=== PATIENT | male | born 1945 | race Caucasian/White ===

== ENCOUNTER 2017-07-08 17:05 | Emergency (ER) | payer MEDICARE ==
[~2017-07-08] VITALS: Ht 160 cm; Wt 85.5 kg
[2017-07-08] MEDS ORDERED: ATOR10TA84 PO (17:27)
[2017-07-08] MEDS ORDERED: LISI-661 PO (17:27)
[2017-07-08] MEDS ORDERED: METF500T4 PO (17:27)
[2017-07-08 17:30] VITALS: BP 147/88
[2017-07-08 17:36] LABS: GLUCOSE,POINT OF CARE 365 MG/DL (70-110)
[2017-07-08] MEDS ORDERED: POVIDONE-IODINE 10% 15 ML SOLUTION UD TP ONE (18:15)
[2017-07-08] MEDS ORDERED: IBUPROFEN 600 MG TABLET PO ONE (18:15)
[2017-07-08] MEDS ORDERED: SULFAMETHOX/TRIMETH DS 800-160 MG/TABLET PO ONE (18:15)
[2017-07-08] MEDS ORDERED: PERTUSS(ACELL),DIPH,TET VAC/PF 0.5 ML VIAL IM ONE (18:15)
== END 2017-07-08 18:55 | disposition home or self-care (01) ==
LOC: EMS 17:10
DX: S81.802A Unspecified open wound, left lower leg, initial encounter (principal); L03.116 Cellulitis of left lower limb; E11.9 Type 2 diabetes mellitus without complications; E78.00 Pure hypercholesterolemia, unspecified; I10 Essential (primary) hypertension; F17.210 Nicotine dependence, cigarettes, uncomplicated; W22.8XXA Striking against or struck by other objects, initial encounter; Y93.01 Activity, walking, marching and hiking; Y92.89 Other specified places as the place of occurrence of the external cause; Y99.8 Other external cause status
CPT/HCPCS: 82962; 90471; 90715; 99284